=== PATIENT | male | born 1980 | race Caucasian/White ===

== ENCOUNTER 2023-11-19 18:48 | Emergency (ER) | payer OTHER ==
[2023-11-19 18:55] VITALS: BP 144/89; PULSE 79; RESP 20; TEMP 98; BMI 27.8
[2023-11-19] MEDS ORDERED: ACETAMINOPHEN 500 MG TABLET (FP) ONE (20:11)
[2023-11-19] MEDS: ACETAMINOPHEN 500 MG TABLET (FP) PO ONE (20:14)
== END 2023-11-19 21:16 | disposition home or self-care (01) ==
LOC: JERFT 18:48
DX: S46.011A Strain of muscle(s) and tendon(s) of the rotator cuff of right shoulder, initial encounter (principal); M54.50 Low back pain, unspecified; M54.2 Cervicalgia; V53.5XXA Driver of pick-up truck or van injured in collision with car, pick-up truck or van in traffic accident, initial encounter
CPT/HCPCS: 72100-TC-FY; 73030-TC-RT-FY; 99284-25